=== PATIENT | female | born 1990 | race African-American/Black ===

== ENCOUNTER 2020-07-09 19:36 | Emergency (ER) | payer OTHER ==
[2020-07-09] MEDS ORDERED: PAROEX473 ML MM (20:19)
[2020-07-09] MEDS ORDERED: AUGMENTIN 875-1 EACH PO (20:19)
== END 2020-07-09 20:29 | disposition home or self-care (01) ==
LOC: ER1 19:36
DX: K05.10 Chronic gingivitis, plaque induced (principal)
CPT/HCPCS: 99282

== ENCOUNTER 2021-09-20 00:22 | Emergency (ER) | payer OTHER ==
[~2021-09-20 00:22] MED LIST: AUGMENTIN 875-1 EACH PO; PAROEX473 ML MM
[2021-09-20 01:21] LABS: RED BLOOD COUNT 4.14 M/UL (4.00-5.10); WHITE BLOOD COUNT 5.9 K/UL (4.5-11.0)
[2021-09-20 01:39] LABS: BUN/CREATININE RATIO 15 (0-10)
[2021-09-20] MEDS ORDERED: IBUPROFEN800 MG PO (04:52)
== END 2021-09-20 05:11 | disposition home or self-care (01) ==
LOC: ER1 00:22
PROVIDERS: Emergency Medicine
DX: N93.9 Abnormal uterine and vaginal bleeding, unspecified (principal)
CPT/HCPCS: 80053; 84702; 85025; 99284

== ENCOUNTER 2021-12-08 14:39 | Emergency (ER) | payer OTHER ==
[~2021-12-08 14:39] MED LIST changes: +IBUPROFEN800 MG PO
[2021-12-08 15:18] LABS: HEMOGLOBIN 12.3 gm/dl (12.3-15.3); RED BLOOD COUNT 4.21 M/UL (4.00-5.10); WHITE BLOOD COUNT 5.5 K/UL (4.5-11.0)
[2021-12-08 15:32] LABS: BUN/CREATININE RATIO 28 (0-10)
== END 2021-12-08 21:00 | disposition home or self-care (01) ==
LOC: ER1 14:39
PROVIDERS: Student in an Organized Health Care Education/Training Program
DX: G89.29 Other chronic pain (principal); M54.9 Dorsalgia, unspecified; F17.200 Nicotine dependence, unspecified, uncomplicated
CPT/HCPCS: 72100; 80053; 81001; 82550; 85025; 85652; 86140; 99283